=== PATIENT | male | born 1980 | race Caucasian/White ===

== ENCOUNTER 2021-10-27 22:34 | Inpatient (IN) | payer OTHER, SELFPAY ==
[~2021-10-27 22:34] MED LIST: Iopamidol-370 76% 500 ML 1 ML ONE
[2021-10-27] MEDS ORDERED: Morphine 4 MG/ML VIAL ONE ×2 (22:45→23:41)
[2021-10-27] MEDS ORDERED: Clindamycin/D5W 600 mg/50 ml Premix Bag ONE (22:51)
[2021-10-27 23:16] LABS: INR-International Normal Ratio 0.9; Prothrombin Time 12.7 sec (12.0-14.7)
[2021-10-27 23:17] LABS: PTT 24.4 sec (22.9-36.1)
[2021-10-27 23:24] LABS: #Lymphocytes 0.9 thou/uL (1.20-3.40); #Monocytes 0.4 thou/uL (0.11-0.59); #Neutrophils 1.2 thou/uL (1.40-6.50); %Basophils 1.3 % (0.0-1.0); %Eosinophils 1.3 % (0.0-10.0); %Lymphocytes 34.5 % (21.0-51.0); %Monocytes 14.6 % (0.0-10.0); %Neutrophils 48.3 % (42.0-75.0); ALT (SGPT) 89 U/L (8-55); AST (SGOT) 158 U/L (5-34); Alkaline Phosphatase 67 U/L (40-110); Anion Gap 16 mmol/L (10-20); BUN (Urea Nitrogen) 4 mg/dL (8.9-20.6); Bilirubin, Total 0.2 mg/dL (0.2-1.2); Calc. Creatinine Clearance 0 mL/min (70-130); Calcium 8.2 mg/dL (7.8-10.44); Carbon Dioxide 24 mmol/L (22-29); Chloride 103 mmol/L (98-107); Estimated GFR 119; Globulin 2.4 g/dL (2.4-3.5); Glucose 107 mg/dL (70-105); Hemoglobin 13.1 g/dL (14.0-18.0); MDiff Complete? YES; Macrocytosis SLIGHT = 6-15 cells (100X) (0-5/hpf); Mean Corpuscular HGB CONC 34.4 g/dL (32.0-36.0); Mean Corpuscular Hemoglobin 37.7 pg (27.0-31.0); Mean Platelet Volume 6.8 fL (7.4-10.4); Platelet Count 126 thou/uL (130-400); Potassium 3.4 mmol/L (3.5-5.1); Protein, Total 6.4 g/dL (6.0-8.3); RBC Distribution Width 12.3 % (11.5-14.5); Red Blood Cell (RBC) Count 3.46 mill/uL (4.70-6.10); Sodium 140 mmol/L (136-145); White Blood Cell (WBC) Count 2.6 thou/uL (4.8-10.8)
[2021-10-28] MEDS ORDERED: Ketamine 50 MG/ML (10ML VIAL) ONE (00:11)
[2021-10-28] MEDS ORDERED: Midazolam HCl 2 mg/2 ml Vial ONE ×2 (00:11→00:17)
[2021-10-28] MEDS ORDERED: Lidocaine 1% PF 5 ML VIAL ONE (00:28)
[2021-10-28] MEDS ORDERED: hydrALAZINE 20 MG/ML VIAL SLOW IVP PRN (00:55)
[2021-10-28] MEDS ORDERED: Morphine 4 MG/ML VIAL SLOW IVP PRN (00:55)
[2021-10-28] MEDS ORDERED: Dextrose 5% in Water 1,000 ML IV PRN (00:55)
[2021-10-28] MEDS ORDERED: Ondansetron PF 4 MG/2 ML Vial IVP PRN (00:55)
[2021-10-28] MEDS ORDERED: Ondansetron ODT 4 MG TAB PO PRN (00:55)
[2021-10-28] MEDS ORDERED: Morphine 2 MG/ML VIAL SLOW IVP PRN (00:55)
[2021-10-28] MEDS ORDERED: Dextrose 50% Abboject 50 ML SYRINGE SLOW IVP PRN (00:55)
[2021-10-28] MEDS ORDERED: Cyclobenzaprine 10 MG TAB PO PRN (00:59)
[2021-10-28] MEDS ORDERED: Acetaminophen/Codeine 30-300mg Tablet PO PRN ×2 (00:59)
[2021-10-28] MEDS ORDERED: traMADol HCl 50 MG TAB PO PRN (01:03)
[2021-10-28] MEDS: traMADol HCl 50 MG TAB PO SCH ×3 (02:19→13:11)
[2021-10-28] MEDS: Ketorolac Tromethamine 30 MG/ML VIAL IVP SCH ×3 (02:20→13:12)
[2021-10-28] MEDS: Acetaminophen 500 MG TAB PO SCH ×3 (02:20→13:12)
[2021-10-28 02:44] VITALS: BMI 25.5
[2021-10-28] MEDS ORDERED: Oxazepam 10 MG CAP PO SCH ×2 (02:45→12:00)
[2021-10-28] MEDS ORDERED: Thiamine 100 MG TAB PO SCH ×2 (02:45→09:00)
[2021-10-28] MEDS ORDERED: Multivit, Therapeutic 1 TAB PO SCH ×2 (02:45→09:00)
[2021-10-28] MEDS ORDERED: Folic Acid 1 MG TAB PO SCH ×2 (02:45→09:00)
[2021-10-28 06:30] LABS: #Lymphocytes 0.8 thou/uL (1.20-3.40); #Monocytes 0.6 thou/uL (0.11-0.59); #Neutrophils 3.7 thou/uL (1.40-6.50); %Basophils 0.2 % (0.0-1.0); %Eosinophils 0.5 % (0.0-10.0); %Lymphocytes 15.3 % (21.0-51.0); Hemoglobin 11.8 g/dL (14.0-18.0); Mean Corpuscular HGB CONC 33.8 g/dL (32.0-36.0); Mean Corpuscular Hemoglobin 37.3 pg (27.0-31.0); Mean Platelet Volume 6.4 fL (7.4-10.4); Platelet Count 107 thou/uL (130-400); RBC Distribution Width 12.4 % (11.5-14.5); Red Blood Cell (RBC) Count 3.16 mill/uL (4.70-6.10); White Blood Cell (WBC) Count 5.1 thou/uL (4.8-10.8)
[2021-10-28] MEDS: Gabapentin 100 MG CAP PO SCH ×2 (06:38→13:12)
[2021-10-28 06:48] LABS: Anion Gap 15 mmol/L (10-20); BUN (Urea Nitrogen) 4 mg/dL (8.9-20.6); Calc. Creatinine Clearance 177 mL/min (70-130); Calcium 7.8 mg/dL (7.8-10.44); Carbon Dioxide 22 mmol/L (22-29); Chloride 105 mmol/L (98-107); Estimated GFR 122; Glucose 78 mg/dL (70-105); Magnesium 1.4 mg/dL (1.6-2.6); Potassium 3.4 mmol/L (3.5-5.1); Sodium 139 mmol/L (136-145)
[2021-10-28] MEDS ORDERED: Magnesium Sulfate In Water 4 GM in Premix Bag 1 BAG IVPB SCH (08:00)
[2021-10-28] MEDS ORDERED: Clindamycin/D5W 900 MG in Premix Bag 1 BAG IVPB SCH (08:00)
[2021-10-28 08:14] LABS: SARS-CoV-2 NAA Rapid Test Not Detected (NotDetected)
[2021-10-28 08:30] LABS: Phosphorus 4.1 mg/dL (2.3-4.7)
[2021-10-28] MEDS ORDERED: Potassium Chloride 40 MEQ in Sodium Chloride 0.9% 250 ML 250 ML IVPB SCH (09:00)
[2021-10-28] MEDS ORDERED: Famotidine 20 MG TAB PO SCH (09:00)
[2021-10-28] MEDS: Morphine 4 MG/ML VIAL SLOW IVP PRN ×2 (11:43→15:58)
[2021-10-28 15:50] VITALS: BP 132/86; TEMP 98.7
== END 2021-10-28 16:41 | disposition home or self-care (01) | DRG 909 ==
LOC: ERS 22:34 → SURG A 10-28 00:55
PROVIDERS: ADMIT Surgery; ATTEND Surgery
PROC: 0KCP0ZZ Extirpation of Matter from Left Hip Muscle, Open Approach (ICD-10-PCS; principal; 2021-10-28)
DX: S71.142A Puncture wound with foreign body, left thigh, initial encounter (principal); I48.91 Unspecified atrial fibrillation; I10 Essential (primary) hypertension; W19.XXXA Unspecified fall, initial encounter; S71.122A Laceration with foreign body, left thigh, initial encounter; Z20.822 Contact with and (suspected) exposure to COVID-19; Z88.0 Allergy status to penicillin; Y92.89 Other specified places as the place of occurrence of the external cause
CPT/HCPCS: 36415; 70450; 71260; 72125; 72170; 74177; 80048; 80053; 80307; 83735; 84100; 85025; 85610; 85730; G0390; J1885; J2250; J2270; J2405; J3475; J3480; J3490; J7050; Q9967; U0002